=== PATIENT | female | born 1995 | race African-American/Black ===

== ENCOUNTER 2016-12-05 19:48 | Emergency (ER) | payer OTHER ==
[2016-12-05 19:57] VITALS: BP 138/85; TEMP 98.5; BMI 29.8
[2016-12-05 19:58] VITALS: PULSE 113
[2016-12-05] MEDS ORDERED: ACETAMINOPHEN 325 MG TABLET (FP) ONE (20:40)
[2016-12-05] MEDS ORDERED: ACETAMINOPHEN 325 MG TABLET (FP) PO ONE (20:40)
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
== END 2016-12-05 21:06 | disposition home or self-care (01) ==
LOC: JERFT 19:48
DX: S00.83XA Contusion of other part of head, initial encounter (principal); S05.12XA Contusion of eyeball and orbital tissues, left eye, initial encounter; S05.11XA Contusion of eyeball and orbital tissues, right eye, initial encounter; Y04.2XXA Assault by strike against or bumped into by another person, initial encounter; Y93.89 Activity, other specified; Y92.018 Other place in single-family (private) house as the place of occurrence of the external cause; Y07.410 Brother, perpetrator of maltreatment and neglect
CPT/HCPCS: 99281-25